=== PATIENT | male | born 2005 | race Caucasian/White ===

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

== ENCOUNTER → 2023-09-12 09:16 | Outpatient (BNVA) | payer OTHER, SELFPAY | PROVIDERS: PCP Family Medicine; Visit Provider Family Medicine | DX: R79.89 Other specified abnormal findings of blood chemistry (principal); L60.0 Ingrowing nail; F41.9 Anxiety disorder, unspecified; F32.A Depression, unspecified | CPT/HCPCS: 82040; 84270; 84403 ==